=== PATIENT | male | born 1955 | race Hispanic/Latino ===

== ENCOUNTER 2018-06-08 17:37 | Emergency (ER) | payer BC ==
--- NOTE | 2018-06-08 18:49 | RAD ---
FOUR VIEWS LEFT KNEE: 06/08/18 HISTORY: Left knee pain and swelling. AP, lateral and both oblique views left knee is obtained. Four views left knee demonstrate no evidence of fractures, subluxations or bony lesions. IMPRESSION: Normal four views left knee. POS: [facility]
--- NOTE | 2018-06-08 21:00 | ULT ---
DOPPLER VENOUS ULTRASOUND LEFT LOWER EXTREMITY: 06/08/18 INDICATION: Edema and pain in left lower extremity. TECHNIQUE: Domingo scale, color doppler and vascular duplex with spectral analysis was performed of the deep venous structures of the left lower extremity. Common femoral vein, superficial femoral vein, popliteal vei n, posterior tibial vein, proximal greater saphenous and profunda veins were assessed. FINDINGS: Normal compression, flow, and augmentation seen within the deep venous structures of the left lower e xtremity. IMPRESSION: No evidence of DVT to the left lower extremity. POS: [facility]
== END 2018-06-08 20:47 | disposition home or self-care (01) ==
LOC: ERS 17:37
DX: M25.562 Pain in left knee (principal); E11.9 Type 2 diabetes mellitus without complications; E78.5 Hyperlipidemia, unspecified